=== PATIENT | male | born 1965 | race Caucasian/White ===

== ENCOUNTER 2019-09-27 10:39 | Emergency (ER) | payer OTHER, SELFPAY ==
[2019-09-27 10:44] VITALS: BP 167/93; PULSE 86; RESP 18; TEMP 37.1; O2SAT 99
--- NOTE | 2019-09-27 10:48 | ED.BACK ---
HPI - Back Pain/Injury General Chief Complaint: Back Pain/Injury Stated Complaint: Back Pain Time Seen by Provider: 09/27/19 10:48 Source: patient and RN notes reviewed History of Present Illness HPI Narrative: Patient is a 54-year-old male that presents the urgent care with complaints of back pain. Patient states he has chronic back pain and typically uses oxycodone. Patient states he has not taken anything for his back pain this morning. 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 Patient states that it started approximately 2 to 3 days ago. Exacerbated as of this morning. No other acute complaints. Denies any known trauma or injury. Denies any history of noted herniated disks. Patient read the plan of care. Related Data Allergies Allergy/AdvReac Type Severity Reaction Status Date / Time No Known Allergies Allergy Mild Verified 09/27/19 10:51 Review of Systems Review of Systems: Narrative: CONSTITUTIONAL: Denies fever, chills, or sweats. EYES: Denies visual changes, redness, or discharge. ENT: Denies rhinorrhea, congestion, sore throat, or otalgia. CARDIOVASCULAR: Denies chest pain, palpitations, or edema. RESPIRATORY: Denies cough or dyspnea. GASTROINTESTINAL: Denies abdominal pain, nausea, vomiting, or diarrhea. GENITOURINARY: Denies dysuria or hematuria. SKIN: Denies rash or itching. MUSCULOSKELETAL: Reports of acute on chronic lumbar strain/back pain NEUROLOGIC: Denies headache, numbness, or weakness. All other systems reviewed are negative, except as documented in HPI. PMFSH Comments At the time of my signature, I reviewed and agree with the nursing past medical, surgical, social, and family history. There is no relevant family history pertinent to the patient complaint. Exam Narrative: Exam Narrative: GENERAL: This is a well-nourished, well-developed patient, in no apparent distress. HEAD: normocephalic, atraumatic. EYES: PERRL. Sclera clear/white. Vision is grossly intact. EARS: External ears normal NOSE: External nose normal with no obvious nasal discharge THROAT: Mucous membranes moist NECK: Neck supple CARDIOVASCULAR: Regular rate and rhythm without murmurs, gallops, or rubs. RESPIRATORY: Clear to auscultation. Breath sounds equal bilaterally. No wheezes, rales, or rhonchi. SKIN: warm, intact with no suspicious lesions or rash, good texture and turgor. NEURO: awake, alert, and oriented to person, place and time. There were no obvious focal neurologic abnormalities. EXTREMITIES: No clubbing, cyanosis, or edema. BACK: Mild to moderate left lumbar tenderness; negative SLE Course Vital Signs Vital signs: Vital Signs Temperature 98.8 F 09/27/19 10:44 Pulse Rate 86 09/27/19 10:44 Respiratory Rate 18 09/27/19 10:44 Blood Pressure 167/93 H 09/27/19 10:44 Pulse Oximetry 99 09/27/19 10:44 Temperature 98.8 F 09/27/19 10:44 Pulse Rate 86 09/27/19 10:44 Respiratory Rate 18 09/27/19 10:44 Blood Pressure 167/93 H 09/27/19 10:44 Pulse Oximetry 99 09/27/19 10:44 Reviewed?patient is informed that they may have pre-hypertension or hypertension based on a blood pressure reading in the department. I recommend the patient call the primary care provider listed on their discharge instructions or a physician of their choice this week to arrange follow-up for further evaluation of possible pre-hypertension or hypertension. MDM - Back Pain/Injury MDM Narrative Medical decision making narrative: Advised the patient to use Flexeril as needed, no more than prescribed. Be aware that it will make you drowsy and I would not drive or operate heavy machinery while on the medication. Use ice and heat intermittently as needed for comfort. Take ibuprofen as needed for pain, use sparingly and make sure you are eating with the medication. Increase water intake while on the ibuprofen. Avoid any strenuous activity such as running, pushing, pu
== END 2019-09-27 11:35 | disposition home or self-care (01) ==
PROVIDERS: Emergency Provider Nurse Practitioner Family; PCP Emergency Medicine
DX: S39.012A Strain of muscle, fascia and tendon of lower back, initial encounter (principal); X58.XXXA Exposure to other specified factors, initial encounter
CPT/HCPCS: 99213; G0463